=== PATIENT | male | born 2000 | race Caucasian/White ===

== ENCOUNTER 2019-08-16 04:30 | Emergency (ER) | payer MEDICAID ==
[~2019-08-16] VITALS: Ht 170.2 cm; Wt 69.0 kg
[2019-08-16] MEDS ORDERED: ACETAMINOPHEN WITH CODEINE 300/30MG TABLET PO ONE (06:45)
[2019-08-16] MEDS ORDERED: ONDANSETRON 4MG ODT PO ONE (06:45)
[2019-08-16 07:42] VITALS: BP 100/53
== END 2019-08-16 07:59 | disposition home or self-care (01) ==
LOC: ER 04:30
DX: M53.3 Sacrococcygeal disorders, not elsewhere classified (principal)
CPT/HCPCS: 99283; Q0162; Z7610

== ENCOUNTER 2019-08-16 09:51 | Emergency (ER) | payer MEDICAID | END 2019-08-16 19:42 | disposition left against medical advice (07) | LOC: ER 09:51 | DX: M79.669 Pain in unspecified lower leg (principal); Z53.21 Procedure and treatment not carried out due to patient leaving prior to being seen by health care provider ==